=== PATIENT | female | born 1945 | race Caucasian/White ===

== ENCOUNTER 2022-01-17 15:58 | Inpatient (IN) ==
[2022-01-17] MEDS ORDERED: Iopamidol - 370 500 ML MLS IVP ONE (19:42)
[2022-01-17] MEDS ORDERED: *HR* Heparin 5,000 UNIT/ML VIAL IVP PRN ×2 (19:43)
[2022-01-17] MEDS ORDERED: *HR* Heparin 5,000 UNIT/ML VIAL IVP ONE (19:43)
[2022-01-17 20:41] LABS: Basophils # 0.1 K/mcL (0.0-0.2); Basophils % 0.4 %; Eosinophils # 0.6 K/mcL (0.0-0.6); Eosinophils % 3.7 %; Hematocrit 34.8 % (35.3-44.9); Hemoglobin 10.7 g/dL (11.5-15.4); Immature Granulocytes % 0.4 % (0-4); Lymphocytes # 6.3 K/mcL (0.6-4.6); Mean Corpuscular HGB Conc 30.7 g/dL (31.6-35.5); Mean Corpuscular Hemoglobin 28.2 pg (28.0-33.3); Mean Corpuscular Volume 91.6 fL (83.0-100.0); Mean Platelet Volume 9.5 fL (9.4-12.4); Monocytes # 1.2 K/mcL (0.0-1.3); Monocytes % 7.4 %; Neutrophils # 7.9 K/mcL (1.6-8.9); Platelet Count 385 K/mcL (140-400); Red Cell Distribution Width 16.6 % (11.5-14.5); Segmented Neutrophils % 49.1 %; White Blood Count 16.2 K/mcL (4.3-11.1)
[2022-01-17 20:54] LABS: Heparin anti-factor XA UFH 0.07 IU/mL (0.30-0.70); INR 1.2; Prothrombin Time 13.1 Seconds (9.4-12.1)
[2022-01-17 20:56] LABS: Activated Partial Thrombo Time 30.5 Seconds (26.0-36.0)
[2022-01-17 20:59] LABS: BUN/Creatinine Ratio 21 (6-26); Blood Urea Nitrogen 13 mg/dL (8-23); Calcium 8.4 mg/dL (8.6-10.3); Carbon Dioxide 30 mEq/L (23-29); Chloride 101 mEq/L (98-107); Glucose 119 mg/dL (70-105); Osmolality,Calculated 285 (280-300); Potassium 3.6 mEq/L (3.5-5.1); Sodium 137 mEq/L (136-145)
[2022-01-17] MEDS: Heparin 25,000UNIT/250ML 1/2NS 25,000 UNIT/250 ML IV.SOLN IVC SCH (21:44)
[2022-01-18] MEDS ORDERED: Melatonin 3 MG TABLET PO PRN (00:40)
[2022-01-18] MEDS ORDERED: D5% in Water 1,000 ML IVC PRN (00:40)
[2022-01-18] MEDS ORDERED: Dextrose Gel 15 GM/37.5 ML TUBE PO PRN ×2 (00:40)
[2022-01-18] MEDS ORDERED: Naloxone 0.4 MG/ML INJ IVP PRN (00:40)
[2022-01-18] MEDS ORDERED: *HR* Dextrose 50 % in Water (Syg) 50 ML SYRINGE IVP PRN (00:40)
[2022-01-18] MEDS ORDERED: Acetaminophen 325 MG TABLET PO PRN (00:40)
[2022-01-18] MEDS ORDERED: Ondansetron 4 MG/2 ML VIAL IVP PRN (00:40)
[2022-01-18 00:48] LABS: Adenovirus Not Detected (Not Detect); Bordetella Pertussis Not Detected (Not Detect); Chlamydophila pneumoniae Not Detected (Not Detect); Coronavirus 229E Not Detected (Not Detect); Coronavirus HKU1 Not Detected (Not Detect); Coronavirus NL63 Not Detected (Not Detect); Coronavirus OC43 Not Detected (Not Detect); Human Metapneumovirus Not Detected (Not Detect); Human Rhinovirus/Enterovirus Not Detected (Not Detect); Influenza A Subtype 2009 H1 Not Detected (Not Detect); Influenza B Not Detected (Not Detect); Mycoplasma pneumoniae Not Detected (Not Detect); Parainfluenza Virus 1 Not Detected (Not Detect); Parainfluenza Virus 2 Not Detected (Not Detect); Parainfluenza Virus 3 Not Detected (Not Detect); Parainfluenza Virus 4 Not Detected (Not Detect); Respiratory Syncytial Virus Not Detected (Not Detect); SARS-CoV-2 Not Detected (Not Detect)
[2022-01-18 05:29] LABS: Heparin anti-factor XA UFH 0.49 IU/mL (0.30-0.70); INR 1.2; Prothrombin Time 13.6 Seconds (9.4-12.1)
[2022-01-18 05:31] LABS: Basophils # 0.1 K/mcL (0.0-0.2); Basophils % 0.7 %; Eosinophils # 0.9 K/mcL (0.0-0.6); Eosinophils % 6.2 %; Hematocrit 30.4 % (35.3-44.9); Hemoglobin 9.5 g/dL (11.5-15.4); Immature Granulocytes % 0.5 % (0-4); Lymphocytes # 5.5 K/mcL (0.6-4.6); Mean Corpuscular HGB Conc 31.3 g/dL (31.6-35.5); Mean Corpuscular Hemoglobin 28.3 pg (28.0-33.3); Mean Corpuscular Volume 90.5 fL (83.0-100.0); Mean Platelet Volume 9.8 fL (9.4-12.4); Monocytes # 0.9 K/mcL (0.0-1.3); Monocytes % 6.8 %; Neutrophils # 6.3 K/mcL (1.6-8.9); Platelet Count 379 K/mcL (140-400); Red Blood Count 3.36 M/mcL (3.82-4.97); Red Cell Distribution Width 16.4 % (11.5-14.5); Segmented Neutrophils % 45.8 %; White Blood Count 13.8 K/mcL (4.3-11.1)
[2022-01-18 05:32] LABS: Activated Partial Thrombo Time 55.1 Seconds (26.0-36.0)
[2022-01-18 06:08] LABS: Alanine Aminotransferase 11 Units/L (7-52); Albumin 2.1 g/dL (3.5-5.7); Albumin/Globulin Ratio 0.6 (1.1-2.2); Alkaline Phosphatase 147 Units/L (34-104); Aspartate Amino Transferase 19 Units/L (13-39); BUN/Creatinine Ratio 22 (6-26); Bilirubin,Total 0.2 mg/dL (0.3-1.0); Blood Urea Nitrogen 12 mg/dL (8-23); Calcium 7.9 mg/dL (8.6-10.3); Carbon Dioxide 31 mEq/L (23-29); Chloride 103 mEq/L (98-107); Globulin 3.7 g/dL (2.4-3.5); Glucose 139 mg/dL (70-105); Magnesium 1.4 mg/dL (1.6-2.6); Osmolality,Calculated 288 (280-300); Phosphorous 2.9 mg/dL (2.7-4.5); Potassium 3.1 mEq/L (3.5-5.1); Sodium 138 mEq/L (136-145); Total Protein 5.8 g/dL (6.4-8.9)
[2022-01-18 07:08] LABS: Platelet Estimate Normal (Normal)
[2022-01-18] MEDS: Ipratropium/Albuterol Neb 3 ML IH SCH ×3 (10:39→20:53)
[2022-01-18] MEDS: Insulin LISPRO 300 UNITS/3 ML VIAL SUBQ SCH ×4 (11:28→19:26)
[2022-01-18] MEDS: Heparin 25,000UNIT/250ML 1/2NS 25,000 UNIT/250 ML IV.SOLN IVC SCH (23:10)
[2022-01-19] MEDS: Ipratropium/Albuterol Neb 3 ML IH SCH ×4 (03:49→22:45)
[2022-01-19 04:37] LABS: Basophils % 0.3 %; Eosinophils # 0.8 K/mcL (0.0-0.6); Eosinophils % 5.5 %; Hematocrit 28.9 % (35.3-44.9); Hemoglobin 8.8 g/dL (11.5-15.4); Immature Granulocytes % 0.6 % (0-4); Lymphocytes % 41.4 %; Mean Corpuscular HGB Conc 30.4 g/dL (31.6-35.5); Mean Corpuscular Hemoglobin 27.5 pg (28.0-33.3); Mean Corpuscular Volume 90.3 fL (83.0-100.0); Monocytes # 0.9 K/mcL (0.0-1.3); Monocytes % 6.2 %; Neutrophils # 6.6 K/mcL (1.6-8.9); Platelet Count 396 K/mcL (140-400); Red Cell Distribution Width 16.4 % (11.5-14.5); White Blood Count 14.4 K/mcL (4.3-11.1)
[2022-01-19 04:56] LABS: BUN/Creatinine Ratio 23 (6-26); Blood Urea Nitrogen 12 mg/dL (8-23); Calcium 7.8 mg/dL (8.6-10.3); Carbon Dioxide 29 mEq/L (23-29); Chloride 104 mEq/L (98-107); Glucose 108 mg/dL (70-105); Osmolality,Calculated 282 (280-300); Potassium 3.8 mEq/L (3.5-5.1); Sodium 136 mEq/L (136-145)
[2022-01-19 05:57] LABS: Platelet Estimate Normal (Normal); Reactive Lymphocytes Present (Not Present)
[2022-01-19] MEDS: Insulin LISPRO 300 UNITS/3 ML VIAL SUBQ SCH ×4 (08:18→21:57)
[2022-01-19 10:06] LABS: Hematocrit 32.1 % (35.3-44.9); Hemoglobin 9.9 g/dL (11.5-15.4)
[2022-01-19] MEDS: *HR* Rivaroxaban 15 MG TABLET PO SCH ×2 (10:09→22:01)
[2022-01-20] MEDS: Ipratropium/Albuterol Neb 3 ML IH SCH ×4 (04:01→22:38)
[2022-01-20] MEDS: Insulin LISPRO 300 UNITS/3 ML VIAL SUBQ SCH ×4 (07:22→21:45)
[2022-01-20] MEDS: *HR* Rivaroxaban 15 MG TABLET PO SCH ×2 (09:35→21:44)
[2022-01-21] MEDS: Ipratropium/Albuterol Neb 3 ML IH SCH ×4 (04:07→22:30)
[2022-01-21] MEDS: Insulin LISPRO 300 UNITS/3 ML VIAL SUBQ SCH ×4 (07:52→19:55)
[2022-01-21] MEDS: *HR* Rivaroxaban 15 MG TABLET PO SCH ×2 (07:53→19:55)
[2022-01-21 19:42] LABS: BUN/Creatinine Ratio 23 (6-26); Blood Urea Nitrogen 14 mg/dL (8-23); Calcium 7.8 mg/dL (8.6-10.3); Carbon Dioxide 27 mEq/L (23-29); Chloride 104 mEq/L (98-107); Glucose 178 mg/dL (70-105); Magnesium 1.3 mg/dL (1.6-2.6); Osmolality,Calculated 287 (280-300); Potassium 4.1 mEq/L (3.5-5.1); Sodium 136 mEq/L (136-145)
[2022-01-22] MEDS: Ipratropium/Albuterol Neb 3 ML IH SCH ×4 (04:31→20:52)
[2022-01-22] MEDS: Insulin LISPRO 300 UNITS/3 ML VIAL SUBQ SCH ×4 (08:31→20:08)
[2022-01-22] MEDS: *HR* Rivaroxaban 15 MG TABLET PO SCH ×2 (08:31→20:50)
[2022-01-23] MEDS: Ipratropium/Albuterol Neb 3 ML IH SCH ×4 (04:02→22:28)
[2022-01-23] MEDS: Insulin LISPRO 300 UNITS/3 ML VIAL SUBQ SCH ×4 (09:46→19:52)
[2022-01-23] MEDS: *HR* Rivaroxaban 15 MG TABLET PO SCH ×2 (09:48→19:52)
[2022-01-24] MEDS: Ipratropium/Albuterol Neb 3 ML IH SCH ×2 (03:58→10:38)
[2022-01-24 06:48] VITALS: TEMP 98.4
[2022-01-24] MEDS: Insulin LISPRO 300 UNITS/3 ML VIAL SUBQ SCH ×2 (08:52→11:37)
[2022-01-24] MEDS: *HR* Rivaroxaban 15 MG TABLET PO SCH (09:17)
[2022-01-24 11:04] VITALS: BP 103/67; PULSE 107; O2SAT 100
[2022-01-24 11:30] LABS: Adenovirus Not Detected (Not Detect); Bordetella Pertussis Not Detected (Not Detect); Chlamydophila pneumoniae Not Detected (Not Detect); Coronavirus 229E Not Detected (Not Detect); Coronavirus HKU1 Not Detected (Not Detect); Coronavirus NL63 Not Detected (Not Detect); Coronavirus OC43 Not Detected (Not Detect); Human Metapneumovirus Not Detected (Not Detect); Human Rhinovirus/Enterovirus Not Detected (Not Detect); Influenza A Subtype 2009 H1 Not Detected (Not Detect); Influenza B Not Detected (Not Detect); Mycoplasma pneumoniae Not Detected (Not Detect); Parainfluenza Virus 1 Not Detected (Not Detect); Parainfluenza Virus 2 Not Detected (Not Detect); Parainfluenza Virus 3 Not Detected (Not Detect); Parainfluenza Virus 4 Not Detected (Not Detect); Respiratory Syncytial Virus Not Detected (Not Detect); SARS-CoV-2 Not Detected (Not Detect)
== END 2022-01-24 13:42 | DRG 175 ==
LOC: EMEROOARM 15:58 → 2ANU 15:58 → SUATTDRO 23:32 → 2ANU 01-18 00:55
PROVIDERS: ADMIT Student in an Organized Health Care Education/Training Program; ATTEND Internal Medicine